=== PATIENT | male | born 1960 | race Caucasian/White ===

== ENCOUNTER 2017-05-03 14:00 | Emergency (ER) | payer OTHER ==
[~2017-05-03] VITALS: Ht 175.3 cm; Wt 86.2 kg
[2017-05-03 14:11] VITALS: BP_SYST 166
[2017-05-03 14:50] LABS: BASOPHILS % (AUTO) 0.7 % (0.0-2.0); EOSINOPHILS % (AUTO) 0.4 % (0.0-4.0); HEMOGLOBIN 14.2 g/dL (14.0-18.0); LYMPHOCYTES % (AUTO) 42.4 % (20.5-51.5); MEAN CORPUSCULAR HEMOGLOBIN 26 pg (27-31); MEAN CORPUSCULAR HGB CONC 32 % (32-36); MEAN CORPUSCULAR VOLUME 79 fL (79.0-98.0); MONOCYTES # (AUTO) 0.6 K/uL (0.0-1.0); NEUTROPHILS # (AUTO) 3.4 K/uL (1.8-7.7); NEUTROPHILS % (AUTO) 47.5 % (40.0-70.0); PLATELET COUNT (AUTO) 258 K/uL (130-430); RED BLOOD CELL COUNT(AUTO) 5.57 MIL/uL (4.2-6.2); RED CELL DISTRIBUTION WIDTH 13.8 % (9.0-15.0)
[2017-05-03 15:01] LABS: BILIRUBIN,URINE NEGATIVE (NEGATIVE); BLOOD, URINE 2+ (NEGATIVE); CLARITY/URINE CLEAR (CLEAR); COLOR,URINE YELLOW (YELLOW); GLUCOSE,URINE NEGATIVE (NEGATIVE); KETONES,URINE TRACE (NEGATIVE); LEUKOCYTE ESTERASE ,URINE NEGATIVE (NEGATIVE); NITRITE, URINE NEGATIVE (NEGATIVE); PROTEIN URINE TRACE (NEGATIVE); UROBILINOGEN,URINE 0.2 (0.2-1.0)
[2017-05-03 15:14] LABS: CALCIUM 8.9 mg/dL (8.4-11.0); CREATININE 1.35 mg/dL (0.55-1.30)
[2017-05-03 15:17] LABS: PROTHROMBIN TIME 10.8 SECS (9.5-12.5)
[2017-05-03 15:18] LABS: ALBUMIN 3.7 g/dL (3.4-4.8); TOTAL BILIRUBIN 0.3 mg/dL (0.0-1.0); TOTAL PROTEIN, SERUM 7.9 g/dL (6.4-8.3)
[2017-05-03 15:38] LABS: BACTERIA,URINE FEW /HPF (None Seen); MUCUS,URINE 1+ /LPF (None Seen); WBC,URINE 0-3 /HPF (0-3)
[2017-05-03 17:15] VITALS: BP_SYST 158
== END 2017-05-03 17:15 | disposition home or self-care (01) ==
LOC: SED 14:00
DX: R42 Dizziness and giddiness (principal); R06.02 Shortness of breath; R61 Generalized hyperhidrosis; R20.0 Anesthesia of skin
CPT/HCPCS: 36415; 70450-TC; 80053; 81000-TC; 84484; 85025; 85610-TC; 85730-TC; 93005; 99285

== ENCOUNTER 2017-10-07 18:06 | Emergency (ER) | payer OTHER ==
[~2017-10-07] VITALS: Ht 175.3 cm; Wt 90.7 kg
[2017-10-07 18:06] VITALS: BP_SYST 150
[2017-10-07] MEDS ORDERED: ONDANSETRON HCL 4 MG/2 ML VIAL IVP ONE (18:30)
[2017-10-07] MEDS ORDERED: NACL 0.9% 1,000 ML IV ONE (18:30)
[2017-10-07] MEDS ORDERED: MECLIZINE HCL 25 MG TABLET (ANITVERT) PO ONE (18:30)
[2017-10-07 18:50] LABS: BASOPHILS % (AUTO) 0.9 % (0.0-2.0); EOSINOPHILS % (AUTO) 0.8 % (0.0-4.0); HEMATOCRIT 43.9 % (36-54); HEMOGLOBIN 13.9 g/dL (14.0-18.0); LYMPHOCYTES # (AUTO) 2.1 K/uL (1.0-5.5); LYMPHOCYTES % (AUTO) 38.8 % (20.5-51.5); MEAN CORPUSCULAR HEMOGLOBIN 26 pg (27-31); MEAN CORPUSCULAR HGB CONC 32 % (32-36); MEAN CORPUSCULAR VOLUME 80 fL (79.0-98.0); MONOCYTES # (AUTO) 0.5 K/uL (0.0-1.0); MONOCYTES % (AUTO) 8.5 % (1.7-9.3); NEUTROPHILS # (AUTO) 2.8 K/uL (1.8-7.7); PLATELET COUNT (AUTO) 252 K/uL (130-430); RED BLOOD CELL COUNT(AUTO) 5.47 MIL/uL (4.2-6.2); RED CELL DISTRIBUTION WIDTH 13.6 % (9.0-15.0); WHITE BLOOD COUNT (AUTO) 5.4 K/uL (4.8-10.8)
[2017-10-07 19:05] LABS: BILIRUBIN,URINE NEGATIVE (NEGATIVE); BLOOD, URINE 2+ (NEGATIVE); CLARITY/URINE CLEAR (CLEAR); COLOR,URINE YELLOW (YELLOW); GLUCOSE,URINE NEGATIVE (NEGATIVE); KETONES,URINE TRACE (NEGATIVE); LEUKOCYTE ESTERASE ,URINE NEGATIVE (NEGATIVE); NITRITE, URINE NEGATIVE (NEGATIVE); PH,URINE 5.5 (5.0-8.0); PROTEIN URINE TRACE (NEGATIVE); UROBILINOGEN,URINE 0.2 (0.2-1.0)
[2017-10-07 19:20] LABS: ANION GAP 10 (5-15); CHLORIDE 104 mmol/L (98-107); CREATININE 1.01 mg/dL (0.55-1.30); GLUCOSE 111 mg/dL (70-99); POTASSIUM 3.9 mmol/L (3.5-5.1); SODIUM SERUM 141 mmol/L (136-145); UREA NITROGEN, BLOOD 20 mg/dL (8-21)
[2017-10-07 19:21] LABS: GFR AFRICAN AMERICAN 97 mL/min (>90)
[2017-10-07 19:28] LABS: ALANINE AMINOTRANSFERASE 37 U/L (12-78); ASPARTATE AMINOTRANSFERASE 27 U/L (10-37); TOTAL BILIRUBIN 0.3 mg/dL (0.0-1.0)
[2017-10-07 19:57] LABS: BACTERIA,URINE FEW /HPF (None Seen); MUCUS,URINE 1+ /LPF (None Seen); WBC,URINE 0-3 /HPF (0-3)
[2017-10-07] MEDS ORDERED: ACETAMINOPHEN 500 MG TABLET PO ONE (21:30)
[2017-10-07 22:59] VITALS: BP_SYST 132
== END 2017-10-07 22:59 | disposition home or self-care (01) ==
LOC: SED 18:06
DX: R42 Dizziness and giddiness (principal)
CPT/HCPCS: 36415; 70450; 71010; 80053; 81000; 84484; 85025; 93005; 96361; 96374; 99285; J2405; J7030; J8597

== ENCOUNTER 2023-02-03 20:32 | Emergency (ER) | payer OTHER ==
[~2023-02-03] VITALS: Ht 175.3 cm; Wt 90.7 kg
[2023-02-03 20:39] VITALS: BP_SYST 153
[2023-02-03] MEDS ORDERED: IBUPROFEN 800 MG TABLET PO ONE (20:45)
[2023-02-03] MEDS ORDERED: HYDROcodone/ACETAMIN 5-325 MG TAB (NORCO/ VICODIN) PO ONE (20:45)
[2023-02-03] MEDS ORDERED: TRAM50TA2 PO (21:44)
[2023-02-03] MEDS ORDERED: IBUP-1971 PO (21:44)
[2023-02-03 22:23] VITALS: BP_SYST 140
== END 2023-02-03 22:22 | disposition home or self-care (01) ==
LOC: SED 20:32
DX: S13.4XXA Sprain of ligaments of cervical spine, initial encounter (principal); S23.3XXA Sprain of ligaments of thoracic spine, initial encounter; S00.03XA Contusion of scalp, initial encounter; E78.5 Hyperlipidemia, unspecified; I10 Essential (primary) hypertension; Z79.899 Other long term (current) drug therapy; W01.0XXA Fall on same level from slipping, tripping and stumbling without subsequent striking against object, initial encounter; Y93.89 Activity, other specified; Y92.89 Other specified places as the place of occurrence of the external cause; Y99.8 Other external cause status
CPT/HCPCS: 70450-TC; 72125-TC; 72128; 76376; 99284